=== PATIENT | female | born 1995 | race Caucasian/White ===

== ENCOUNTER 2016-05-25 06:00 | Emergency (ER) | payer SELFPAY ==
[~2016-05-25] VITALS: Ht 167.6 cm; Wt 81.6 kg
[2016-05-25] MEDS ORDERED: ONDANSETRON HCL 4 MG/2 ML VIAL ONE (06:09)
[2016-05-25] MEDS ORDERED: AMMONIA 0.33 ML INHALANT IN ONE (06:39)
[2016-05-25] MEDS ORDERED: SODIUM CHLORIDE 0.9% 1,000 ML IVB ONE (07:11)
[2016-05-25] MEDS ORDERED: PROCHLORPERAZINE EDISYLATE 5 MG/ML 2ML VIAL IV ONE (07:15)
[2016-05-25] MEDS ORDERED: NALBUPHINE HCL 10 MG/1ml INJECTION IV ONE (07:15)
[2016-05-25] MEDS ORDERED: ONDANSETRON HCL 4 MG/2 ML VIAL IV ONE (07:30)
[2016-05-25 07:32] LABS: DEFINITIVE VIEW TRANSMISSION; Mean Corpuscular Hemoglobin 27.3 pg (28.0-32.0); Mean Corpuscular Hgb Conc. 33.3 g/dL (32.0-36.0); Platelet Count (auto) 358 10^3/uL (140-450); Red Cell Distribution Width 15.1 % (11.6-16.0); SUSPECT VIEW TRANSMISSION
[2016-05-25 07:37] LABS: Metamyelocytes % 0; Myelocytes % 0; Promyelocytes % 0; Reactive Lymphocytes 0
[2016-05-25 07:38] LABS: Albumin 3.9 g/dL (3.4-5.0); BUN/Creatinine Ratio 13.3; Calcium 9.5 mg/dL (8.5-10.1); Potassium 3.3 mmol/L (3.5-5.1)
[2016-05-25 07:41] LABS: Bilirubin, Total 0.8 mg/dL (0.2-1.0)
[2016-05-25 07:48] VITALS: BP 127/81
[2016-05-25 08:03] LABS: Magnesium 1.7 mg/dL (1.6-2.6)
[2016-05-25 08:21] LABS: Urine RBC None Seen /hpf (0 - 4)
[2016-05-25 08:22] LABS: Platelet Estimate Adequate
[2016-05-25 08:23] LABS: Giant Platelets Few; Large Platelets FEW
[2016-05-25 08:35] LABS: Urine Blood Negative /uL (Negative); Urine Color Yellow (Yellow); Urine Glucose Normal (Normal); Urine Mucus MODERATE (None Seen); Urine Nitrite Negative (Negative); Urine Squamous Epithelial Cell MOD /hpf (<5)
[2016-05-25 08:47] LABS: Urine Bilirubin Negative (Negative); Urine Ketone 4+ (Negative)
== END 2016-05-25 08:22 | disposition left against medical advice (07) ==
LOC: EDBD 06:00 → ER 06:03
DX: G43.A0 Cyclical vomiting, in migraine, not intractable (principal); D72.829 Elevated white blood cell count, unspecified; E87.6 Hypokalemia; R10.9 Unspecified abdominal pain; F12.10 Cannabis abuse, uncomplicated; F11.10 Opioid abuse, uncomplicated; Z88.5 Allergy status to narcotic agent
CPT/HCPCS: 36415; 80053; 81001; 83690; 83735; 84443; 84702; 85007; 85027; 96361; 96374; 96375; 99284; G0434; J0780; J2300; J2405; J7030

== ENCOUNTER 2016-05-28 12:56 | Emergency (ER) | payer SELFPAY ==
[~2016-05-28] VITALS: Ht 170.2 cm; Wt 72.6 kg
[2016-05-28] MEDS ORDERED: LORazepam 2MG/ML-1ML VIAL ONE (13:08)
[2016-05-28] MEDS ORDERED: LORazepam 2MG/ML-1ML VIAL IV ONE (13:30)
[2016-05-28] MEDS ORDERED: PROMETHAZINE HCL 25 MG/ML 1ML ONE (14:04)
[2016-05-28] MEDS ORDERED: SODIUM CHLORIDE 0.9% 1,000 ML IV ONE ×2 (16:19→16:45)
[2016-05-28 16:22] LABS: DEFINITIVE VIEW TRANSMISSION; Eosinophils # (auto) 0.1 uL; SUSPECT VIEW TRANSMISSION; White Blood Cell 21.4 10^3/uL (4.4-10.8)
[2016-05-28 16:26] LABS: Basophils # (auto) 0 uL; Eosinophils % (auto) 0.3 % (0.0-7.0); Hematocrit 44.3 % (36.0-46.0); Lymphocytes # (auto) 1.3 uL; Lymphocytes % (auto) 5.9 % (10.0-50.0); Mean Corpuscular Hemoglobin 26.1 pg (28.0-32.0); Mean Corpuscular Hgb Conc. 31.5 g/dL (32.0-36.0); Mean Corpuscular Volume 82.9 fL (80.0-100.0); Mean Platelet Volume 10.3 fL (7.4-10.4); Monocytes # (auto) 0.6 uL; Neutrophils # (auto) 19.4 uL; Neutrophils % (auto) 90.8 % (37.0-80.0); Platelet Count (auto) 306 10^3/uL (140-450); Red Cell Distribution Width 15.2 % (11.6-16.0)
[2016-05-28 16:39] LABS: Albumin 3.8 g/dL (3.4-5.0); BUN/Creatinine Ratio 21.8; Bilirubin, Total 0.6 mg/dL (0.2-1.0); Calcium 9.9 mg/dL (8.5-10.1); Potassium 3.7 mmol/L (3.5-5.1); Total Protein 7.7 g/dL (6.4-8.2)
[2016-05-28] MEDS ORDERED: PROCHLORPERAZINE EDISYLATE 5 MG/ML 2ML VIAL IV ONE (17:45)
[2016-05-28] MEDS ORDERED: GASTROGRAFIN 30 ML SOL ONE (18:53)
[2016-05-28 19:13] LABS: Urine Bilirubin Negative (Negative); Urine Blood Negative /uL (Negative); Urine Color Yellow (Yellow); Urine Glucose Normal (Normal); Urine Mucus FEW (None Seen); Urine Nitrite Negative (Negative); Urine RBC 1 /hpf (0 - 4); Urine Squamous Epithelial Cell FEW /hpf (<5); Urine Urobilinogen Normal (Negative)
[2016-05-28 19:14] LABS: Urine Ketone 4+ (Negative)
[2016-05-28] MEDS ORDERED: IOHEXOL 300 MG/ML 100ML BOTTLE IJ ONE (19:36)
[2016-05-28] MEDS ORDERED: ONDANSETRON HCL 4 MG/2 ML VIAL IV ONE (19:45)
[2016-05-28 22:30] VITALS: BP 131/80
== END 2016-05-28 23:40 | disposition left against medical advice (07) ==
LOC: EDUNIT# 12:56 → ER 13:03
DX: R41.82 Altered mental status, unspecified (principal); G43.A0 Cyclical vomiting, in migraine, not intractable; D72.829 Elevated white blood cell count, unspecified; R10.9 Unspecified abdominal pain; Z88.5 Allergy status to narcotic agent
CPT/HCPCS: 36415; 74177; 80053; 81001; 84702; 85025; 94761; 96361; 96374; 96375; 99285; G0434; J0780; J2060; J2405; J2550; J7030; Q9963; Q9967

== ENCOUNTER 2016-08-02 23:32 | Emergency (ER) | payer SELFPAY ==
[2016-08-02 23:40] VITALS: BP 116/68
== END 2016-08-03 00:40 | disposition left against medical advice (07) ==
LOC: ER 23:40
DX: R10.9 Unspecified abdominal pain (principal); R11.2 Nausea with vomiting, unspecified; Z53.21 Procedure and treatment not carried out due to patient leaving prior to being seen by health care provider

== ENCOUNTER 2016-09-16 16:12 | Emergency (ER) | payer SELFPAY ==
[~2016-09-16] VITALS: Ht 170.2 cm; Wt 78.9 kg
[2016-09-16] MEDS ORDERED: SODIUM CHLORIDE 0.9% 1,000 ML IV ONE ×2 (16:16→19:15)
[2016-09-16] MEDS ORDERED: DIAZEPAM 5 MG/ML 2ML SYRG IV ONE (16:30)
[2016-09-16] MEDS ORDERED: SODIUM CHLORIDE 0.9% 1,000 ML IVB ONE (16:49)
[2016-09-16] MEDS ORDERED: PANTOPRAZOLE SODIUM 40 MG/10 ML VIAL IV STA (16:49)
[2016-09-16] MEDS ORDERED: PROCHLORPERAZINE EDISYLATE 5 MG/ML 2ML VIAL IV ONE ×2 (17:00→19:15)
[2016-09-16] MEDS ORDERED: HYDROmorphone HCL 2 MG/ML VL IV ONE ×2 (17:00→19:15)
[2016-09-16] MEDS ORDERED: diphenhdrAMINE HCL 50 MG/1 ML VL IV ONE (17:00)
[2016-09-16 17:20] LABS: Urine Bilirubin Negative (Negative); Urine Blood Negative /uL (Negative); Urine Color Yellow (Yellow); Urine Glucose Normal (Normal); Urine Nitrite Negative (Negative); Urine RBC <1 /hpf (0 - 4); Urine Squamous Epithelial Cell FEW /hpf (<5); Urine Urobilinogen Normal (Negative); Urine pH 5.5 (5.0-8.0)
[2016-09-16 17:24] LABS: Basophils # (auto) 0.1 uL; Basophils % (auto) 0.5 % (0.0-2.0); Eosinophils # (auto) 0.3 uL; Eosinophils % (auto) 1.3 % (0.0-7.0); Hemoglobin 12.9 g/dL (12.2-16.2); Lymphocytes # (auto) 1.5 uL; Lymphocytes % (auto) 6.3 % (10.0-50.0); Mean Corpuscular Hemoglobin 27.7 pg (28.0-32.0); Mean Corpuscular Volume 84.1 fL (80.0-100.0); Mean Platelet Volume 10.2 fL (7.4-10.4); Monocytes # (auto) 1.3 uL; Monocytes % (auto) 5.4 % (0.0-12.0); Neutrophils # (auto) 20.3 uL; Neutrophils % (auto) 86.5 % (37.0-80.0); Platelet Count (auto) 265 10^3/uL (140-450); Red Cell Distribution Width 16.5 % (11.6-16.0); SUSPECT VIEW TRANSMISSION; White Blood Cell 23.5 10^3/uL (4.4-10.8)
[2016-09-16 17:26] LABS: Urine Ketone 1+ (Negative)
[2016-09-16 17:39] LABS: Albumin 3.6 g/dL (3.4-5.0); BUN/Creatinine Ratio 11.3; Calcium 8.9 mg/dL (8.5-10.1); Potassium 3.5 mmol/L (3.5-5.1)
[2016-09-16 17:42] LABS: Bilirubin, Total 0.5 mg/dL (0.2-1.0); Total Protein 7.1 g/dL (6.4-8.2)
[2016-09-16] MEDS ORDERED: cloNIDine HCL 0.1 MG TAB PO ONE (19:15)
[2016-09-16 19:26] VITALS: BP 140/71
== END 2016-09-16 19:33 | disposition home or self-care (01) ==
LOC: EDBD 16:12 → ER 16:17
DX: K29.00 Acute gastritis without bleeding (principal); F41.9 Anxiety disorder, unspecified; I10 Essential (primary) hypertension; F12.10 Cannabis abuse, uncomplicated; Z90.89 Acquired absence of other organs; Z88.6 Allergy status to analgesic agent
CPT/HCPCS: 36415; 80053; 81001; 83690; 85025; 94761; 96361; 96374; 96375; 99284; C9113; J0780; J1170; J1200; J3360; J7030

== ENCOUNTER 2016-11-02 16:54 | Emergency (ER) | payer SELFPAY ==
[~2016-11-02] VITALS: Ht 167.6 cm; Wt 81.6 kg
[2016-11-02] MEDS ORDERED: HALOPERIDOL LACTATE 5 MG/ML INJ VIAL ONE ×2 (17:26→20:59)
[2016-11-02] MEDS ORDERED: HALOPERIDOL LACTATE 5 MG/ML INJ VIAL IM ONE (17:45)
[2016-11-02] MEDS ORDERED: LORazepam 2MG/ML-1ML VIAL ONE ×2 (18:42→21:01)
[2016-11-02] MEDS ORDERED: diphenhdrAMINE HCL 50 MG/1 ML VL ONE ×2 (18:42→20:59)
[2016-11-02] MEDS ORDERED: diphenhdrAMINE HCL 50 MG/1 ML VL IV ONE (18:45)
[2016-11-02] MEDS ORDERED: LORazepam 2MG/ML-1ML VIAL IV ONE (18:45)
[2016-11-02 18:51] LABS: Basophils # (auto) 0 uL; Basophils % (auto) 0.1 % (0.0-2.0); CONDITION AutoValidated; Eosinophils # (auto) 0 uL; Eosinophils % (auto) 0.1 % (0.0-7.0); Lymphocytes # (auto) 1.9 uL; Lymphocytes % (auto) 11.4 % (10.0-50.0); Mean Corpuscular Hemoglobin 28.1 pg (28.0-32.0); Mean Corpuscular Hgb Conc. 34.1 g/dL (32.0-36.0); Mean Corpuscular Volume 82.4 fL (80.0-100.0); Mean Platelet Volume 9.7 fL (7.4-10.4); Monocytes % (auto) 6.2 % (0.0-12.0); Neutrophils # (auto) 13.8 uL; Neutrophils % (auto) 82.2 % (37.0-80.0); Platelet Count (auto) 297 10^3/uL (140-450); Red Cell Distribution Width 15.4 % (11.6-16.0); SUSPECT SEE PRINTOUT; White Blood Cell 16.8 10^3/uL (4.4-10.8)
[2016-11-02 19:09] LABS: Albumin 3.9 g/dL (3.4-5.0); BUN/Creatinine Ratio 33.9; Bilirubin, Total 0.7 mg/dL (0.2-1.0); Calcium 9.7 mg/dL (8.5-10.1); Potassium 3.2 mmol/L (3.5-5.1); Total Protein 7.9 g/dL (6.4-8.2)
[2016-11-02 19:20] LABS: Platelet Estimate Adequate
[2016-11-02 19:21] LABS: Large Platelets OCCL.
[2016-11-02 19:40] LABS: Amylase 38 U/L (25-115)
[2016-11-02 20:01] LABS: B-Type Natriuretic Peptide 15.07 pg/mL (0-100)
[2016-11-02 20:08] LABS: Temperature: 23.1 C (20.0-25.0)
[2016-11-02] MEDS ORDERED: SODIUM CHLORIDE 0.9% 1,000 ML IV ONE (20:15)
[2016-11-02] MEDS ORDERED: THIAMINE HCL 100 MG/ML 2ML VIAL ONE (21:48)
[2016-11-02] MEDS ORDERED: MVI in SODIUM CHLORIDE 0.9% 1,010 ML ONE (21:50)
[2016-11-02 22:22] LABS: Urine Blood Negative /uL (Negative); Urine Color Red (Yellow); Urine Glucose Normal (Normal); Urine Mucus FEW (None Seen); Urine Nitrite Negative (Negative); Urine RBC 2 /hpf (0 - 4); Urine Squamous Epithelial Cell FEW /hpf (<5); Urine pH 6.5 (5.0-8.0)
[2016-11-02 22:24] LABS: Urine Ketone 3+ (Negative)
[2016-11-02 22:27] LABS: Urine Bilirubin POSITIVE (Negative)
[2016-11-03] MEDS ORDERED: ONDANSETRON HCL 4 MG/2 ML VIAL IV ONE ×2 (01:15→01:30)
[2016-11-03] MEDS ORDERED: LORazepam 2MG/ML-1ML VIAL IV ONE ×2 (01:15→01:30)
[2016-11-03 02:30] VITALS: BP 110/50
[2016-11-03] MEDS ORDERED: THIAMINE INJ 100 MG, MULTIPLE VITAMIN 10 ML, FOLIC ACID 1 MG, MAGNESIUM SULF SDV 50% 8 ... IV ONE ×5 (21:30)
== END 2016-11-03 02:58 | disposition home or self-care (01) ==
LOC: ER 16:54 → EDUNIT# 16:54 → ER 11-03 02:58
DX: N39.0 Urinary tract infection, site not specified (principal); F10.10 Alcohol abuse, uncomplicated; R45.1 Restlessness and agitation; F12.10 Cannabis abuse, uncomplicated; R51 Headache; F17.210 Nicotine dependence, cigarettes, uncomplicated; Z88.6 Allergy status to analgesic agent
CPT/HCPCS: 36415; 51702; 70450; 72125; 80053; 80307; 81001; 81025; 82150; 83690; 83880; 84702; 85025; 96361; 96365; 96366; 96372; 96375; 96376; 99285; J1200; J1630; J2060; J2405; J3411; J3475